=== PATIENT | male | born 1965 | race Caucasian/White ===

== ENCOUNTER → 2017-06-08 | Outpatient (CLI) | payer MEDICAID ==
[2014-09-25 20:24] VITALS: BP 153/99
--- NOTE | 2017-06-08 14:31 | CT ---
CERVICAL SPINE CT WITHOUT IV CONTRAST THORACIC SPINE CT WITHOUT IV CONTRAST LUMBAR SPINE CT WITHOUT IV CONTRAST CLINICAL INDICATION: Neck and back pain. History of surgery for cervical spine fracture. Reported mul tiple spine fractures in the past. TECHNIQUE: Axial, sagittal, and coronal reconstructed images of the cervical, thoracic and lumbar spi ne. Dose reduction techniques including Automated Exposure Control (AEC) and adjustment of mA and kV were utlized. COMPARISON: None. FINDINGS: Cervical Spine: There is no evidence of acute fracture or subluxation. Status post ACDF at C4-C5 with interbody spacer. Grade 1 anterolisthesis of C3 on C4 and grade 1 retrolisthesis of C4 on C5. There is some subtle perihardware lucency surrounding the C5 screws. Vertebral body heights are maintained. No aggressive osseous lesions are identified. Mild multilevel degenerative disc disease. There is n o abnormality of the cranio-cervical junction. Evaluation of the individual levels demonstrates no si gnificant bony spinal canal stenosis. Thoracic Spine: There is no evidence of acute fracture or subluxation. Exaggerated kyphosis secondary to multiple compression deformities. These are most evident at T7, T8, T9. No aggressive osseous les ions are identified. Multilevel degenerative disc disease. Evaluation of the individual levels demons trates no significant bony canal stenosis. The paraspinal soft tissues and intrathoracic structures d emonstrate no abnormality. Lumbar Spine: There is no evidence of acute fracture or subluxation. Normal alignment is maintained w ithout scoliosis or listhesis. Approximately 50% compression deformity of L1. This appears chronic. N o aggressive osseous lesions are identified. Mild multilevel degenerative disc disease. Evaluation of the individual levels demonstrates no significant bony canal stenosis. IMPRESSION: 1. Status post ACDF of C4-C5 with perihardware lucency of the C5 screws suggesting some degree of loo sening. 2. Multiple chronic appearing compression deformities at T7, T8, T9, T12, L1. 3. Mild to moderate multilevel degenerative disc disease. Reported By:
== END | disposition home or self-care (01) | DRG 74 ==
LOC: RAD 13:14
PROVIDERS: ATTEND Psychiatry & Neurology Neurology
DX: M54.12 Radiculopathy, cervical region (principal); M54.5 Low back pain; M51.84 Other intervertebral disc disorders, thoracic region; M51.86 Other intervertebral disc disorders, lumbar region; Z98.1 Arthrodesis status
CPT/HCPCS: 72125; 72128; 72131

== ENCOUNTER → 2017-06-29 | Outpatient (CLI) | payer MEDICAID ==
[2014-09-25 20:24] VITALS: BP 153/99
[2017-06-29 11:16] LABS: CREATININE 0.8 mg/dL (0.70-1.30); FREE T4 (FREE THYROXINE) 1.03 ng/dL (0.76-1.46); T4 (THYROXINE) 8.9 ug/dL (4.7-13.3); TSH (3RD GENERATION) 1.268 uIU/mL (0.358-3.74)
--- NOTE | 2017-06-29 14:07 | CT ---
HISTORY: Headaches. Study: CT brain with and without IV contrast. Comparison: None. Technique: Multiple axial images of the brain were obtained from the skull base to the vertex both prior to and after administration of IV contrast. Findings: No acute intraparenchymal hemorrhage or mass can be identified. There is no abnormal enhan cement on postcontrast imaging. No extra-axial fluid collections are seen. No alteration in the att enuation of the brain parenchyma can be identified to suggest acute or subacute ischemic change. The ventricular system is symmetric and nondilated. The right vertebral artery is dominant and the left vertebral artery is diminutive. There is a partially imaged mucous retention cyst in the right maxill zaki sinus. The extracranial structures are grossly unremarkable. IMPRESSION: No acute intracranial process or specific cause for headaches is evident. Reported By:
== END | disposition home or self-care (01) | DRG 103 ==
LOC: RAD 10:29
PROVIDERS: ATTEND Psychiatry & Neurology Neurology
DX: R51 Headache (principal); R26.89 Other abnormalities of gait and mobility; M54.12 Radiculopathy, cervical region; M54.5 Low back pain
CPT/HCPCS: 36415; 70470; 82565; 82607; 82746; 84436; 84439; 84443; 84520; A4222